=== PATIENT | male | born 1960 | race Caucasian/White ===

== ENCOUNTER 2022-02-19 18:12 | Inpatient (IN) | payer OTHER ==
[2022-02-19 20:01] LABS: PH,URINE 5.5 (5.0-8.0); URINE APPEARANCE CLEAR; URINE BILIRUBIN NEGATIVE (NEGATIVE); URINE COLOR YELLOW; URINE GLUCOSE (UA) NEGATIVE (NEGATIVE); URINE KETONE NEGATIVE (NEGATIVE); URINE LEUK ESTERASE NEGATIVE (NEGATIVE); URINE NITRITE NEGATIVE (NEGATIVE); URINE PROTEIN TRACE (NEGATIVE)
[2022-02-19 21:05] LABS: HEMATOCRIT 40.8 % (35.4-49); HEMOGLOBIN 13.1 GM/dL (11.7-16.9); MCH 27.7 pg (25.7-33.7); MCHC 32.2 g/dl (32.0-35.9); MEAN PLT VOLUME 8.7 fl (7.5-11.1); PLATELET COUNT 249 10^3/uL (134-434); RBC 4.74 M/mm3 (4.00-5.60); RDW 13.4 % (11.9-15.9); WHITE BLOOD COUNT 12.1 K/mm3 (4.0-10.0)
[2022-02-19 21:13] LABS: ALBUMIN 3.1 g/dl (3.4-5.0); CALCIUM 8.9 mg/dL (8.5-10.1)
[2022-02-19 21:14] LABS: BLOOD UREA NITROGEN 17.8 mg/dL (7-18)
[2022-02-19 21:16] LABS: CREATININE 0.9 mg/dL (0.55-1.3)
[2022-02-19 21:18] LABS: BILIRUBIN,TOTAL 0.4 mg/dL (0.2-1); TOT PROT 6.6 g/dl (6.4-8.2)
[2022-02-19] MEDS ORDERED: PIPERACILLIN/TAZOB 4.5 GM 4.5 GM in DEXTROSE 5%-WATER 100 ML IVPB ONE (21:50)
[2022-02-19] MEDS ORDERED: SODIUM CHLORIDE 0.9% 500 ML INFUS.BAG IV ONE (21:51)
[2022-02-19] MEDS ORDERED: PIPERACILLIN/TAZOB 4.5 GM 4.5 GM/100 ML BAG IVPB ONE (22:24)
[2022-02-19] MEDS ORDERED: ACETAMINOPHEN 1000 MG/100 ML BAG IVPB PRN (22:48)
[2022-02-19 23:39] LABS: INR 1.37 (0.83-1.09); PROTHROMBIN TIME (PATIENT) 15.8 SEC (9.7-13.0)
[2022-02-19 23:42] LABS: ACTIVATED PTT 33.4 SECONDS (25.2-36.5)
[2022-02-20] MEDS ORDERED: morphine SULFATE 4 MG/ML VIAL IVPUSH PRN (02:19)
[2022-02-20] MEDS ORDERED: ONDANSETRON 4 MG/2 ML VIAL IVPUSH PRN (02:20)
[2022-02-20] MEDS: DEXTROSE 5%-0.45% SALINE 1,000 ML IV SCH ×2 (02:45→20:11)
[2022-02-20] MEDS ORDERED: PIPERACILLIN/TAZOB 4.5 GM 4.5 GM in DEXTROSE 5%-WATER 100 ML IVPB SCH ×2 (03:00→05:00)
[2022-02-20] MEDS ORDERED: morphine SULFATE 4 MG/ML VIAL ONE (03:40)
[2022-02-20] MEDS ORDERED: PIPERACILLIN/TAZOB 4.5 GM 4.5 GM/100 ML BAG IVPB ONE ×2 (07:18→13:26)
[2022-02-20 08:56] LABS: HEMOGLOBIN 12.1 GM/dL (11.7-16.9); MCH 28.3 pg (25.7-33.7); MCHC 33.7 g/dl (32.0-35.9); MEAN CELL VOLUME 83.9 fl (80-96); MEAN PLT VOLUME 9.1 fl (7.5-11.1); PLATELET COUNT 228 10^3/uL (134-434); RBC 4.29 M/mm3 (4.00-5.60); RDW 12.8 % (11.9-15.9); WHITE BLOOD COUNT 10.7 K/mm3 (4.0-10.0)
[2022-02-20 09:30] LABS: ANISOCYTOSIS 3+; MACROCYTOSIS 0
[2022-02-20 10:11] LABS: ALBUMIN 2.7 g/dl (3.4-5.0); BILIRUBIN,TOTAL 0.9 mg/dL (0.2-1); BLOOD UREA NITROGEN 13.8 mg/dL (7-18); CALCIUM 8.5 mg/dL (8.5-10.1); CREATININE 0.8 mg/dL (0.55-1.3); TOT PROT 5.7 g/dl (6.4-8.2)
[2022-02-20] MEDS: PIPERACILLIN/TAZOB 4.5 GM 4.5 GM in DEXTROSE 5%-WATER 100 ML IVPB SCH ×2 (14:20→22:05)
[2022-02-21] MEDS ORDERED: PIPERACILLIN/TAZOB 4.5 GM 4.5 GM in DEXTROSE 5%-WATER 100 ML IVPB SCH (03:00)
[2022-02-21] MEDS: PIPERACILLIN/TAZOB 4.5 GM 4.5 GM in DEXTROSE 5%-WATER 100 ML IVPB SCH ×3 (06:50→22:00)
[2022-02-21] MEDS: DEXTROSE 5%-0.45% SALINE 1,000 ML IV SCH ×2 (09:36→22:03)
[2022-02-21] MEDS: ENOXAPARIN NA (PORCINE) 40 MG/0.4 ML DISP.SYRIN SQ SCH (09:36)
[2022-02-22] MEDS: DEXTROSE 5%-0.45% SALINE 1,000 ML IV SCH ×2 (02:00→10:02)
[2022-02-22] MEDS: PIPERACILLIN/TAZOB 4.5 GM 4.5 GM in DEXTROSE 5%-WATER 100 ML IVPB SCH ×3 (06:52→21:52)
[2022-02-22 09:33] LABS: HEMATOCRIT 42.1 % (35.4-49); HEMOGLOBIN 13.7 GM/dL (11.7-16.9); MCHC 32.5 g/dl (32.0-35.9); MEAN CELL VOLUME 86.3 fl (80-96); MEAN PLT VOLUME 9.1 fl (7.5-11.1); PLATELET COUNT 313 10^3/uL (134-434); RBC 4.88 M/mm3 (4.00-5.60); RDW 13.2 % (11.9-15.9); WHITE BLOOD COUNT 10.7 K/mm3 (4.0-10.0)
[2022-02-22] MEDS: ENOXAPARIN NA (PORCINE) 40 MG/0.4 ML DISP.SYRIN SQ SCH (10:02)
[2022-02-22 10:05] LABS: ALBUMIN 2.8 g/dl (3.4-5.0); BLOOD UREA NITROGEN 8.3 mg/dL (7-18); CALCIUM 9.1 mg/dL (8.5-10.1)
[2022-02-22 10:08] LABS: CREATININE 1.2 mg/dL (0.55-1.3)
[2022-02-22 10:09] LABS: BILIRUBIN,TOTAL 0.7 mg/dL (0.2-1); TOT PROT 6.1 g/dl (6.4-8.2)
[2022-02-22 11:00] LABS: ANISOCYTOSIS 0; HELMET CELLS 0; HOWELL-JOLLY BODIES 0; MACROCYTOSIS 0; OVALOCYTE 0; ROULEAU 0; SICKELED CELLS 0; TARGET CELLS 0; TEAR DROP CELLS 0; TOXIC GRANULATION 0
[2022-02-23] MEDS: DEXTROSE 5%-0.45% SALINE 1,000 ML IV SCH (05:37)
[2022-02-23] MEDS: PIPERACILLIN/TAZOB 4.5 GM 4.5 GM in DEXTROSE 5%-WATER 100 ML IVPB SCH ×3 (05:37→21:13)
[2022-02-24] MEDS: PIPERACILLIN/TAZOB 4.5 GM 4.5 GM in DEXTROSE 5%-WATER 100 ML IVPB SCH ×3 (05:59→22:57)
[2022-02-24] MEDS ORDERED: MIDAZOLAM HCL 2 MG/2 ML SINGLE DOSE VIAL ONE (14:56)
[2022-02-24] MEDS ORDERED: FENTANYL CITRATE/PF 50 MCG/ML VIAL ONE (14:56)
[2022-02-24] MEDS ORDERED: SODIUM CHLORIDE 500 ML IV ONE (16:00)
[2022-02-24] MEDS ORDERED: FENTANYL CITRATE/PF 50 MCG/ML VIAL IVPUSH ONE (16:10)
[2022-02-24] MEDS: DEXTROSE 5%-0.45% SALINE 1,000 ML IV SCH (17:46)
[2022-02-25 04:39] VITALS: RESP 18
[2022-02-25] MEDS: DEXTROSE 5%-0.45% SALINE 1,000 ML IV SCH ×2 (06:02→12:43)
[2022-02-25] MEDS: PIPERACILLIN/TAZOB 4.5 GM 4.5 GM in DEXTROSE 5%-WATER 100 ML IVPB SCH ×3 (06:02→22:00)
[2022-02-25 12:31] LABS: HEMOGLOBIN 13.6 GM/dL (11.7-16.9); MCH 28.1 pg (25.7-33.7); MCHC 33.1 g/dl (32.0-35.9); MEAN CELL VOLUME 84.8 fl (80-96); MEAN PLT VOLUME 8.4 fl (7.5-11.1); PLATELET COUNT 371 10^3/uL (134-434); RBC 4.84 M/mm3 (4.00-5.60); RDW 12.8 % (11.9-15.9); WHITE BLOOD COUNT 10.1 K/mm3 (4.0-10.0)
[2022-02-25 19:55] VITALS: BMI 25.6
[2022-02-26] MEDS: DEXTROSE 5%-0.45% SALINE 1,000 ML IV SCH ×3 (01:23→12:35)
[2022-02-26] MEDS: PIPERACILLIN/TAZOB 4.5 GM 4.5 GM in DEXTROSE 5%-WATER 100 ML IVPB SCH ×2 (06:53→13:28)
[2022-02-26 09:22] LABS: BASO % 0.4 % (0-2.0); EOS % 3.1 % (0-4.5); HEMATOCRIT 38.9 % (35.4-49); HEMOGLOBIN 12.9 GM/dL (11.7-16.9); LYMPH % 13.8 % (8-40); MCH 27.9 pg (25.7-33.7); MCHC 33.1 g/dl (32.0-35.9); MEAN CELL VOLUME 84.3 fl (80-96); MEAN PLT VOLUME 8.6 fl (7.5-11.1); MONO % 5.2 % (3.8-10.2); NEUT % 77.5 % (42.8-82.8); PLATELET COUNT 358 10^3/uL (134-434); RBC 4.61 M/mm3 (4.00-5.60); RDW 13.2 % (11.9-15.9); WHITE BLOOD COUNT 9.2 K/mm3 (4.0-10.0)
[2022-02-26 09:40] LABS: CALCIUM 8.5 mg/dL (8.5-10.1)
[2022-02-26 09:41] LABS: BLOOD UREA NITROGEN 10.6 mg/dL (7-18)
[2022-02-26 09:44] LABS: CREATININE 1.2 mg/dL (0.55-1.3)
[2022-02-26] MEDS ORDERED: ENOXAPARIN NA (PORCINE) 40 MG/0.4 ML DISP.SYRIN SQ SCH (10:00)
[2022-02-26 14:17] VITALS: BP 125/70; PULSE 61; TEMP 98.1
== END 2022-02-26 17:00 | disposition home or self-care (01) | DRG 373 ==
LOC: JER 18:12 → JERBED 22:40 → J6S 02-20 18:22
PROVIDERS: ADMIT Internal Medicine; ATTEND Internal Medicine
PROC: 0W9G3ZZ Drainage of Peritoneal Cavity, Percutaneous Approach (ICD-10-PCS; principal; 2022-02-24)
DX: K35.33 Acute appendicitis with perforation, localized peritonitis, and gangrene, with abscess (principal); I10 Essential (primary) hypertension; E78.5 Hyperlipidemia, unspecified; N40.0 Benign prostatic hyperplasia without lower urinary tract symptoms
CPT/HCPCS: 0241U-QW; 36415; 49406; 71045-TC-FY; 74177-TC; 76705-TC; 80048; 80053; 81003; 83690; 85025; 85027; 85610; 85730; 86140; 86850; 86900; 86901; 87040; 87070; 87075; 87076; 87086; 87186; 87205; 93005; 93010; 99285-25; Q9967

== ENCOUNTER 2022-06-02 04:29 | Day surgery (SDC) | payer OTHER ==
[2022-06-01 16:10] VITALS: BMI 25.2
[2022-06-02] MEDS ORDERED: ROCURONIUM BROMIDE 50 MG/5 ML SYRINGE ONE (09:06)
[2022-06-02] MEDS ORDERED: PROPOFOL 20 ML ONE (09:06)
[2022-06-02] MEDS ORDERED: ONDANSETRON 4 MG/2 ML VIAL ONE (09:09)
[2022-06-02] MEDS ORDERED: DEXAMETHASONE SOD PHOSPHATE 4 MG/1 ML VIAL ONE (09:09)
[2022-06-02] MEDS ORDERED: ceFAZolin SODIUM 1 GM VIAL ONE (09:09)
[2022-06-02] MEDS ORDERED: oxyCODONE HCL 5 MG TABLET PO PRN (09:20)
[2022-06-02] MEDS ORDERED: ACETAMINOPHEN 325 MG TABLET (FP) PO PRN (09:20)
[2022-06-02] MEDS ORDERED: PROMETHAZINE HCL 25 MG/1 ML VIAL IVPB PRN (09:20)
[2022-06-02] MEDS ORDERED: ONDANSETRON 4 MG/2 ML VIAL IVPUSH PRN (09:20)
[2022-06-02] MEDS ORDERED: LACTATED RINGERS SOLUTION 1,000 ML IV SCH (09:30)
[2022-06-02] MEDS ORDERED: NEOSTIGMINE METHYLSULFATE 0.5 MG/1 ML - 10 ML MDV ONE (09:42)
[2022-06-02] MEDS ORDERED: GLYCOPYRROLATE 0.2 MG/1 ML VIAL ONE (09:43)
[2022-06-02] MEDS ORDERED: BUPIVACAINE HCL/PF 0.5% (5MG/ML) 10 ML VIAL ONE (10:22)
[2022-06-02] MEDS ORDERED: MIDAZOLAM HCL 2 MG/2 ML SINGLE DOSE VIAL ONE (10:49)
[2022-06-02] MEDS ORDERED: BUPIVACAINE HCL/PF 0.5% (5 MG/ML) 30 ML VIAL IJ ONE ×2 (11:11)
[2022-06-02] MEDS ORDERED: cefOXitin SODIUM 2 GM VIAL (RESTRICTED TO ID) IVPB ONE ×2 (11:13→11:15)
[2022-06-02] MEDS ORDERED: KETOROLAC TROMETHAMINE 30 MG/1 ML VIAL ONE (12:18)
[2022-06-02 14:17] VITALS: TEMP 98.1
[2022-06-02 18:42] VITALS: BP 115/78; PULSE 70; RESP 20
== END 2022-06-02 15:38 | disposition home or self-care (01) ==
LOC: JASU-SURG 04:29
PROVIDERS: ATTEND Surgery
PROC: 0DTJ4ZZ Resection of Appendix, Percutaneous Endoscopic Approach (ICD-10-PCS; principal; 2022-06-02 10:00)
DX: K36 Other appendicitis (principal); K66.0 Peritoneal adhesions (postprocedural) (postinfection)
CPT/HCPCS: 88304-TC; 94760